=== PATIENT | male | born 1990 | race Caucasian/White ===

== ENCOUNTER 2016-09-22 17:43 | Emergency (ER) | payer SELFPAY ==
[~2016-09-22] VITALS: Ht 167.6 cm; Wt 112.0 kg
[2016-09-22 18:42] VITALS: BP 160/106
[2016-09-22 19:57] LABS: BASOPHILS # (AUTO) 0.3 K/uL (0.00-0.22); EOSINOPHILS # (AUTO) 0.2 K/uL (0-0.4); EOSINOPHILS % (AUTO) 1.9 % (0.0-4.0); HEMATOCRIT 49.5 % (36-52); HEMOGLOBIN 16.5 g/dL (12.0-18.0); LYMPHOCYTES # (AUTO) 1.4 K/uL (2.0-11.5); LYMPHOCYTES % (AUTO) 13.9 % (20.5-51.1); MEAN CORPUSCULAR HEMOGLOBIN 30 pg (27-31); MEAN CORPUSCULAR HGB CONC 33 g/dL (33-37); MEAN CORPUSCULAR VOLUME 90 fL (80-94); MONOCYTES # (AUTO) 0.5 K/uL (0.8-1.0); NEUTROPHILS # (AUTO) 7.9 K/uL (1.8-7.7); PLATELET COUNT (AUTO) 196 K/uL (140-450); RED BLOOD CELL COUNT(AUTO) 5.48 MIL/uL (4.20-6.10); RED CELL DISTRIBUTION WIDTH 12.6 % (11.6-13.7); WHITE BLOOD COUNT (AUTO) 10.3 K/uL (4.8-10.8)
--- NOTE | 2016-09-22 20:05 | NUR ---
26Y M BIB FAMILY W/C/O N/V/D/ SINCE LAST NOC. PT ALSO C/O LOWER ABDOMINAL PAIN. SKIN IS PINK/WARM/DRY; AAOX4 WITH EVEN AND STEADY GAIT; LUNGS CLEAR BL; HR EVEN AND REGULAR; PT DENIES ANY FEVER, CP, SOB, OR COUGH AT THIS TIME; PATIENT STATES PAIN OF 8/10 AT THIS TIME; VSS; PATIENT POSITIONED FOR COMFORT; HOB ELEVATED; BEDRAILS UP X2; BED DOWN. ER MD MADE AWARE OF PT STATUS.
--- NOTE | 2016-09-22 20:05 | NUR ---
TO ER OF3
--- NOTE | 2016-09-22 20:06 | NUR ---
Patient being evaluated by physician.
[2016-09-22 20:15] LABS: ANION GAP 14.7 (8-16); CALCIUM 9.1 mg/dL (8.5-10.1); CARBON DIOXIDE 27.3 mmol/L (21-32); CREATININE 0.9 mg/dL (0.6-1.3)
[2016-09-22] MEDS ORDERED: ACETAMINOPHEN EXTRA STRENGTH 500 MG TAB PO ONE (20:15)
[2016-09-22 20:21] VITALS: BP 142/86
--- NOTE | 2016-09-22 20:21 | NUR ---
Patient discharged with v/s stable BY ER MD DR GREGORY . Written and verbal after care instructions given and explained BY ER MD DR GREGORY. Patient alert, oriented and verbalized understanding of instructions. Ambulatory with steady gait. All questions addressed prior to discharge BY ER MD DR GREGORY. ID band removed. Patient advised to follow up with PMD. Rx of ZOFRAN 8MG AND CIPRO 500MG given. Patient educated on indication of medication including possible reaction and side effects. Opportunity to ask questions provided and answered BY ER MD DR GREGORY.
== END 2016-09-22 20:21 | disposition home or self-care (01) ==
LOC: MED 17:43
DX: A09 Infectious gastroenteritis and colitis, unspecified (principal); R03.0 Elevated blood-pressure reading, without diagnosis of hypertension
CPT/HCPCS: 36415; 80048; 85025; 99284

== ENCOUNTER 2017-10-18 18:03 | Emergency (ER) | payer SELFPAY ==
[~2017-10-18] VITALS: Ht 170.2 cm; Wt 120.2 kg
[2017-10-18 18:19] VITALS: BP 149/88
--- NOTE | 2017-10-18 18:24 | NUR ---
patient to lobby awaiting available room. gcs=15 with steady gait.
--- NOTE | 2017-10-18 19:26 | NUR ---
PT TAKEN TO BED 1
--- NOTE | 2017-10-18 19:30 | NUR ---
27 yo m bib girlfriend with c/o facial swelling, bl hand swelling, and prutitis x 1 week during night time. Patient sts he moved to a new house about a month ago and feels like he is allergic to something. Patient denies any known allergies. Currently, no swelling noted to face, hands at this time. Clear speech with full sentences. Pt reports that he had a head injury 2-3 weeks ago when he hit his head very hard on a small piece of plastic from the ceiling. He had nausea at the time of injury, and bilateral epistaxis. report he has "hole in his head" from the injury. Reports pain at night that goes from the top of his head down to the tip of his nose. a&o x 4. gcs 15. cms intact. rr even and unlabored. lungs bilaterally clear. abd soft, non-tender. er md wahl notified. pt needs met. safety precautions in place. will continue to monitor.
--- NOTE | 2017-10-18 19:39 | NUR ---
Dr. Solomon evaluating patient at bedside.
[2017-10-18 20:55] VITALS: BP 138/74
== END 2017-10-18 20:56 | disposition home or self-care (01) ==
LOC: MED 18:03
DX: S09.90XA Unspecified injury of head, initial encounter (principal); R60.0 Localized edema; J45.909 Unspecified asthma, uncomplicated; W22.8XXA Striking against or struck by other objects, initial encounter; Y93.89 Activity, other specified; Y92.89 Other specified places as the place of occurrence of the external cause; Y99.8 Other external cause status
CPT/HCPCS: 70450; 99284

== ENCOUNTER 2019-03-07 16:47 | Emergency (ER) | payer MEDICAID ==
[~2019-03-07] VITALS: Ht 170.2 cm; Wt 122.0 kg
[2019-03-07 17:00] VITALS: BP 155/85
[2019-03-07] MEDS ORDERED: KETOROLAC 60 MG/2 ML VIAL IM ONE (17:50)
[2019-03-07 18:12] LABS: BASOPHILS % (AUTO) 0.5 % (0.0-2.0); EOSINOPHILS # (AUTO) 0.2 K/uL (0-0.4); EOSINOPHILS % (AUTO) 1.9 % (0.0-4.0); HEMATOCRIT 44.4 % (36-52); HEMOGLOBIN 14.8 g/dL (12.0-18.0); LYMPHOCYTES # (AUTO) 1.9 K/uL (2.0-11.5); LYMPHOCYTES % (AUTO) 21.7 % (20.5-51.1); MEAN CORPUSCULAR HEMOGLOBIN 32 pg (27-31); MEAN CORPUSCULAR HGB CONC 33 g/dL (33-37); MEAN CORPUSCULAR VOLUME 96.6 fL (80-94); MONOCYTES # (AUTO) 0.7 K/uL (0.8-1.0); MONOCYTES % (AUTO) 8.5 % (1.7-9.3); NEUTROPHILS # (AUTO) 5.9 K/uL (1.8-7.7); NEUTROPHILS % (AUTO) 67.4 % (42.2-75.2); PLATELET COUNT (AUTO) 155 K/uL (140-450); RED CELL DISTRIBUTION WIDTH 13.3 % (11.6-13.7); WHITE BLOOD COUNT (AUTO) 8.7 K/uL (4.8-10.8)
[2019-03-07 18:28] LABS: ALBUMIN 3.7 g/dL (3.4-5.0); ANION GAP 12.2 (8-16); CARBON DIOXIDE 28.5 mmol/L (21-32); CREATININE 0.8 mg/dL (0.7-1.3); POTASSIUM 3.7 mmol/L (3.5-5.1); TOTAL BILIRUBIN 0.4 mg/dL (0.0-1.0)
[2019-03-07 19:57] VITALS: BP 158/78
== END 2019-03-07 20:31 | disposition left against medical advice (07) ==
LOC: MED 16:47
DX: R10.11 Right upper quadrant pain (principal); J45.909 Unspecified asthma, uncomplicated; I10 Essential (primary) hypertension; Z88.8 Allergy status to other drugs, medicaments and biological substances; Z91.018 Allergy to other foods; Z91.010 Allergy to peanuts
CPT/HCPCS: 36415; 76705; 80053; 81002; 83690; 85025; 96372; 99284; J1885; Q0092

== ENCOUNTER 2019-06-05 18:17 | Emergency (ER) | payer SELFPAY ==
[~2019-06-05] VITALS: Ht 167.6 cm; Wt 121.6 kg
[2019-06-05 18:42] VITALS: BP 156/82
--- NOTE | 2019-06-05 18:42 | NUR ---
29 y/o M presents to ER c/o fever, sore throat, bilateral ear pain, mild dry cough, and head congestion. Pain level 7/10 for head ache. Pt took night quil at 11am. Pt alert and oriented. Respirations even and unlabored. Pt has hx of HTN and ran out of rx medication. Pt does not have a primary. HOB elevated, bed in lowest level, bed rail up x1. Waiting for ERMD to evaluate pt. Allergies: Food Allergies Med hx: HTN and asthma.
[2019-06-05] MEDS ORDERED: IBUPROFEN 600 MG TAB PO ONE (19:10)
--- NOTE | 2019-06-05 19:12 | NUR ---
RECEIVED REPORT FROM KANIKA MCKENZIE. TRANSFER OF CARE AT THIS TIME
--- NOTE | 2019-06-05 19:15 | NUR ---
INFLUENZA SWAB COLLECTED FROM PT.
--- NOTE | 2019-06-05 20:09 | NUR ---
PT FEVER REDUCED TO 99.2 ORAL S/P IBURPROFEN
[2019-06-05] MEDS ORDERED: NACL 0.9% 1,000 ML IV ONE (20:20)
--- NOTE | 2019-06-05 21:05 | NUR ---
PT DENIES HEADACHE AT THIS TIME. FEVER REDUCED 98.9 ORAL. PT LAYING IN BED CALM AND PLEASANT. VSS. WILL CONTINUE TO MONITOR.
[2019-06-05 21:18] VITALS: BP 144/80
--- NOTE | 2019-06-05 21:19 | NUR ---
Patient discharged with v/s stable. Written and verbal after care instructions given and explained. Patient alert, oriented and verbalized understanding of instructions. Ambulatory with steady gait. All questions addressed prior to discharge. ID band removed. Patient advised to follow up with PMD. Rx of IBURPROFEN, TAMIFLU AND PROMETHAZINE given. Patient educated on indication of medication including possible reaction and side effects. Opportunity to ask questions provided and answered.
== END 2019-06-05 21:18 | disposition home or self-care (01) ==
LOC: MED 18:17
DX: J11.1 Influenza due to unidentified influenza virus with other respiratory manifestations (principal); J45.909 Unspecified asthma, uncomplicated; I10 Essential (primary) hypertension; Z91.010 Allergy to peanuts; Z91.018 Allergy to other foods; Z91.013 Allergy to seafood
CPT/HCPCS: 87804; 99283; J7030

== ENCOUNTER 2021-06-09 08:38 | Emergency (ER) | payer SELFPAY ==
[~2021-06-09] VITALS: Ht 170.2 cm; Wt 112.9 kg
[2021-06-09 08:45] VITALS: BP 156/81
--- NOTE | 2021-06-09 08:48 | NUR ---
PT TO WAIT IN LOBBY.
--- NOTE | 2021-06-09 08:53 | NUR ---
31 Y/O MALE C/O RECTAL BLEEDING X1DAY. PT DENIES PAIN. DENIES N/V. DENIES FEVER/CHILLS. PMH: HTN ALLERGIES: CORN, PEANUT, SESAME OIL
[2021-06-09 09:13] VITALS: BP 156/81
--- NOTE | 2021-06-09 09:13 | NUR ---
Patient discharged with v/s stable. Written and verbal after care instructions given and explained. Patient alert, oriented and verbalized understanding of instructions. Ambulatory with steady gait. All questions addressed prior to discharge. ID band removed. Patient advised to follow up with PMD. Rx of HYDROCORTISONE ACETATE given. Patient educated on indication of medication including possible reaction and side effects. Opportunity to ask questions provided and answered.
[2021-06-09] MEDS ORDERED: HYDR25SU91 RC (09:20)
== END 2021-06-09 09:13 | disposition home or self-care (01) ==
LOC: MED 08:38
DX: K62.5 Hemorrhage of anus and rectum (principal); J45.909 Unspecified asthma, uncomplicated; I10 Essential (primary) hypertension; Z79.899 Other long term (current) drug therapy; Z91.018 Allergy to other foods; Z91.010 Allergy to peanuts; Z91.013 Allergy to seafood
CPT/HCPCS: 99282

== ENCOUNTER 2022-08-11 09:28 | Emergency (ER) | payer SELFPAY ==
[~2022-08-11] VITALS: Ht 170.2 cm; Wt 109.3 kg
[~2022-08-11 09:28] MED LIST: HYDR25SU91 RC
[2022-08-11 09:33] VITALS: BP 156/94
--- NOTE | 2022-08-11 10:25 | NUR ---
Patient being evaluated by physician at bedside.
[2022-08-11] MEDS ORDERED: GABAPENTIN 300 MG CAP PO ONE (10:30)
--- NOTE | 2022-08-11 11:21 | NUR ---
Patient discharged with v/s stable. Written and verbal after care instructions given and explained. Patient verbalized understanding. Ambulatory with steady gait. All questions addressed prior to discharge. Advised to follow up with PMD.
== END 2022-08-11 11:10 | disposition home or self-care (01) ==
LOC: MED 09:28
DX: R20.2 Paresthesia of skin (principal); J45.909 Unspecified asthma, uncomplicated; I10 Essential (primary) hypertension; Z79.899 Other long term (current) drug therapy; Z91.010 Allergy to peanuts; Z91.018 Allergy to other foods
CPT/HCPCS: 99283